=== PATIENT | female | born 1950 | race Caucasian/White ===

== ENCOUNTER 2017-02-17 09:30 | Outpatient (CLI) | payer OTHER ==
--- NOTE | 2017-02-17 11:57 | MMO ---
BILATERAL SCREENING MAMMOGRAM: Date: 02/17/17 INDICATION: Annual exam. COMPARISON: Prior exams dated 01/22/13 and 02/17/16. FINDINGS: Interpretation of this exam was assisted with computer-aided detection. There are scattered fibroglandular elements bilaterally. There are benign-appearing calcifications bilaterally. No suspicious mass, cluster of microcalcifications, or area of architectural distortion is evident. IMPRESSION: BIRADS 2: Benign Finding(s) Recommend routine annual mammographic screening. POS: [facility]
== END 2017-02-17 09:31 | disposition home or self-care (01) ==
LOC: SCSMAMMO 09:30
PROVIDERS: ATTEND Thoracic Surgery (Cardiothoracic Vascular Surgery)
DX: Z12.31 Encounter for screening mammogram for malignant neoplasm of breast (principal)
CPT/HCPCS: 77067; G0202

== ENCOUNTER 2017-10-27 09:01 | Outpatient (CLI) | payer OTHER ==
[~2017-10-27 09:01] MED LIST: ISOVUE-370 76%-LOCM 1 ML ONE
[2017-10-27 09:52] LABS: Estimated GFR-MDRD - POC Greater than 90
== END 2017-10-27 09:02 | disposition home or self-care (01) ==
LOC: BICCT 09:01
PROVIDERS: ATTEND Family Medicine
DX: K57.32 Diverticulitis of large intestine without perforation or abscess without bleeding (principal); R10.814 Left lower quadrant abdominal tenderness
CPT/HCPCS: 74177; 82565

== ENCOUNTER 2018-02-20 08:24 | Outpatient (CLI) | payer OTHER ==
--- NOTE | 2018-02-20 10:15 | MMO ---
BILATERAL SCREENING MAMMOGRAM: Date: 02/20/18 HISTORY: 67-year-old female. Routine screening mammography. COMPARISON: 02/17/17, 02/17/16, 01/26/15, 01/23/14. TECHNIQUE: CC and MLO views of both breasts are submitted for interpretation. This patient's mammogram was reviewed with the assistance of computer-aided detection. FINDINGS: The breasts are composed of scattered fibroglandular tissue. Bilaterally, no suspicious dominant mass , architectural distortion, or suspicious calcifications. Bilateral benign-appearing calcifications a re identified. IMPRESSION: BIRADS 2: Benign Finding(s) RECOMMENDATION: Annual mammogram. POS: [facility]
== END 2018-02-20 08:25 | disposition home or self-care (01) ==
LOC: SCSMAMMO 08:24
PROVIDERS: ATTEND Obstetrics & Gynecology
DX: Z12.31 Encounter for screening mammogram for malignant neoplasm of breast (principal)
CPT/HCPCS: 77067

== ENCOUNTER 2018-08-16 05:23 | Observation (INO) | payer OTHER, MEDICARE ==
[2018-08-16 06:26] LABS: #Basophils 0.2 thou/uL (0.0-0.2); #Eosinphils 0.1 thou/uL (0.0-0.7); #Monocytes 0.5 thou/uL (0.11-0.59); #Neutrophils 4.4 thou/uL (1.40-6.50); %Basophils 2.4 % (0.0-1.0); %Eosinophils 1.9 % (0.0-10.0); %Lymphocytes 27.8 % (21.0-51.0); %Neutrophils 60.8 % (42.0-75.0); Hemoglobin 16.3 g/dL (12.0-16.0); Mean Corpuscular HGB CONC 33.6 g/dL (32.0-36.0); Mean Corpuscular Hemoglobin 28.7 pg (27.0-31.0); Mean Corpuscular Volume 85.4 fL (78.0-98.0); Mean Platelet Volume 7.7 fL (7.4-10.4); Platelet Count 181 thou/uL (130-400); RBC Distribution Width 11.9 % (11.5-14.5); White Blood Cell (WBC) Count 7.3 thou/uL (4.8-10.8)
[2018-08-16 06:36] LABS: Acetaminophen Less than 6.0 mcg/mL (10.0-30.0); Alcohol Less than 10 mg/dL (Less than 10); Salicylate Less than 8.0 mg/dL (15.0-30.0)
[2018-08-16 06:39] LABS: ALT (SGPT) 24 U/L (8-55); AST (SGOT) 21 U/L (5-34); Albumin 4.3 g/dL (3.4-4.8); Alkaline Phosphatase 107 U/L (40-150); Anion Gap 15 mmol/L (10-20); BUN (Urea Nitrogen) 13 mg/dL (9.8-20.1); Bilirubin, Total 0.5 mg/dL (0.2-1.2); CK (CPK) 121 U/L (29-168); Calc. Creatinine Clearance 0 mL/min (70-130); Calcium 10.1 mg/dL (7.8-10.44); Carbon Dioxide 29 mmol/L (23-31); Chloride 99 mmol/L (98-107); Estimated GFR-MDRD 76; Globulin 3.8 g/dL (2.4-3.5); Glucose 114 mg/dL (80-115); Lipase 36 U/L (8-78); Potassium 3.6 mmol/L (3.5-5.1); Protein, Total 8.1 g/dL (6.0-8.3); Sodium 139 mmol/L (136-145)
--- NOTE | 2018-08-16 07:10 | CT ---
CT HEAD NONCONTRAST: Date: 08/16/18 INDICATION: Headache, new onset weakness. FINDINGS: There is no acute intracranial hemorrhage, mass effect, midline shift, or ventriculomegaly. No acute fluid level of the paranasal sinuses is visualized. IMPRESSION: No acute intracranial abnormalities. POS: [facility]
[2018-08-16 07:44] LABS: Bilirubin Negative (Negative); Blood, Urine Negative (Negative); Clarity Slightly Cloudy (Clear); Glucose, Urine (Dipstick) Negative (Negative); Leukocyte Negative (Negative); Nitrite Positive (Negative); Protein, Urine (Dipstick) Negative (Neg-Trace); Specific Gravity, Urine 1.015 (1.005-1.030); Urobilinogen 0.2 mg/dL (0.2-1.0); pH, Urine 7.5 (5.0-9.0)
--- NOTE | 2018-08-16 07:50 | RAD ---
Exam: Chest one view HISTORY:Chest pain. Comparison: 03/16/2009 FINDINGS: Cardiac silhouette: Normal Pulmonary vessels: Normal Costophrenic angles: Clear LUNGS: No masses or consolidation. Pneumothorax: None Osseous abnormalities: None IMPRESSION: No acute cardiopulmonary process.
[2018-08-16 07:56] LABS: Bacteria/HPF 3+ HPF (None Seen); RBC/HPF 0-3 HPF (0-3); Squamous Epithelial None Seen HPF (0-3); WBC/HPF 0-3 HPF (0-3)
[2018-08-16 07:57] LABS: Hyaline Casts/LPF NONE SEEN LPF (0-3 Hyaline)
[2018-08-16 08:00] LABS: Amphetamine Not Detected (NotDetected); Barbiturates Screen Not Detected (NotDetected); Benzodiazepine Screen Not Detected (NotDetected); Cocaine Metabolite Screen Not Detected (NotDetected); Medtox Control Line Valid? VALID (VALID); Methadone Not Detected (NotDetected); Methamphetamine Not Detected (NotDetected); Opiate Screen Not Detected (NotDetected); Oxycodone Screen Not Detected (NotDetected); Phencyclidine (PCP) Not Detected (NotDetected); THC/Cannabinoid Screen Not Detected (NotDetected); Tricyclic Screen Not Detected (NotDetected)
[2018-08-16] MEDS ORDERED: Aspirin Chewable 81 MG TAB ONE (08:23)
--- NOTE | 2018-08-16 08:44 | CT ---
CT ANGIOGRAM CHEST WITH 3D RENDERING CT ANGIOGRAM ABDOMEN WITH 3D RENDERING: HISTORY: Chest pain, weakness, back pain. FINDINGS: Old granuloma calcification changes are noted within the mediastinal and hilar regions. No evidence for aortic aneurysm or dissection. No convincing CT evidence for acute pulmonary embolism. No pleur al effusion or pericardial effusion. No significant pulmonary parenchymal process. In the abdomen, postop cholecystectomy changes are noted. Probable fatty changes of the liver. Panc reas, spleen, and adrenal glands are unremarkable. No renal calculus or acute obstruction. No dominik wel obstruction, abscess, adenopathy, or abnormal fluid collection. Minimal colonic diverticulosis w ithout acute diverticulitis in the sigmoid colon. No evidence for abdominal aortic aneurysm. There are scattered vascular calcific plaques, evidence for atherosclerotic disease. IMPRESSION: Evidence for aortic atherosclerotic disease. No evidence for aortic aneurysm or dissection. No conv incing CT evidence for acute pulmonary embolism. Probable fatty changes in the liver. Minimal sigmo id colon diverticulosis without acute diverticulitis. Other findings as above. POS: [facility]
[2018-08-16] MEDS ORDERED: Acetaminophen 325 MG TAB ONE (14:38)
[2018-08-16 16:07] VITALS: BMI 28.3
[2018-08-16] MEDS ORDERED: Acetaminophen 325 MG TAB PO PRN (16:35)
[2018-08-16] MEDS ORDERED: Enoxaparin Sodium 30 MG/0.3 ML SYRINGE SC SCH (16:45)
[2018-08-16 16:52] LABS: Troponin I Less than 0.010 ng/mL (< 0.028)
--- NOTE | 2018-08-16 17:04 | PDOC.FPRHP ---
- Allergies/Adverse Reactions Allergies Allergy/AdvReac Type Severity Reaction Status Date / Time No Known Allergies Allergy Verified 08/16/18 16:38 - Home Medications Medication Instructions Recorded Confirmed Type Atenolol 25 mg PO DAILY 08/16/18 08/16/18 History Multivit, Therapeutic [Theragran] 1 tab PO DAILY 08/16/18 08/16/18 History Winston-3 Fatty Acids [Winston-3] 1,000 mg PO HS 08/16/18 08/16/18 History Pantoprazole [Protonix] 40 mg PO DAILY 08/16/18 08/16/18 History clonazePAM [Clonazepam] 0.5 mg PO HS 08/16/18 08/16/18 History Aspirin [Ecotrin Low Strength] 81 mg PO DAILY tab 08/17/18 Rx - History PMHx: PSHx: FHx: Social: - Vital signs BP: [] HR: [] RR: [] Tmax: [] Pox: []% on [] Wt: [] FMR H&P: Results - Labs Result Diagrams: 08/16/18 06:15 08/16/18 06:15 Lab results: WBC 7.3 thou/uL (4.8-10.8) 08/16/18 06:15 Hgb 16.3 g/dL (12.0-16.0) H 08/16/18 06:15 Hct 48.7 % (36.0-47.0) H 08/16/18 06:15 MCV 85.4 fL (78.0-98.0) 08/16/18 06:15 Plt Count 181 thou/uL (130-400) 08/16/18 06:15 Neutrophils % 60.8 % (42.0-75.0) 08/16/18 06:15 Sodium 139 mmol/L (136-145) 08/16/18 06:15 Potassium 3.6 mmol/L (3.5-5.1) 08/16/18 06:15 Chloride 99 mmol/L (98-107) 08/16/18 06:15 Carbon Dioxide 29 mmol/L (23-31) 08/16/18 06:15 BUN 13 mg/dL (9.8-20.1) 08/16/18 06:15 Creatinine 0.76 mg/dL (0.6-1.1) 08/16/18 06:15 Glucose 114 mg/dL (80-115) 08/16/18 06:15 Calcium 10.1 mg/dL (7.8-10.44) 08/16/18 06:15 Total Bilirubin 0.5 mg/dL (0.2-1.2) 08/16/18 06:15 AST 21 U/L (5-34) 08/16/18 06:15 ALT 24 U/L (8-55) 08/16/18 06:15 Alkaline Phosphatase 107 U/L (40-150) 08/16/18 06:15 Creatine Kinase 121 U/L (29-168) 08/16/18 06:15 Serum Total Protein 8.1 g/dL (6.0-8.3) 08/16/18 06:15 Albumin 4.3 g/dL (3.4-4.8) 08/16/18 06:15 Lipase 36 U/L (8-78) 08/16/18 06:15 Urine Ketones Negative mg/dL (Negative) 08/16/18 07:39 Urine Blood Negative (Negative) 08/16/18 07:39 Urine Nitrite Positive (Negative) H 08/16/18 07:39 Ur Leukocyte Esterase Negative (Negative) 08/16/18 07:39 Urine RBC 0-3 HPF (0-3) 08/16/18 07:39 Urine WBC 0-3 HPF (0-3) 08/16/18 07:39 Ur Squamous Epith Cells None Seen HPF (0-3) 08/16/18 07:39 Urine Bacteria 3+ HPF (None Seen) H 08/16/18 07:39 FMR H&P: Upper Level - Plan Date/Time: 08/16/18 [id number] PCP: Rayo HPI: This is a 67 yo F admitted from the ED for chest pain r/o and tia r/o. Patient presented to the ED after waking up at 4am and feeling dizzy. She states that when she was walking to the restroom she felt like she might fall. She states she was able to use the restroom, shower, and brush her teeth then went back to bed. Denies focal weakness or falling. She says her left leg feels maybe a little different than her right. She also has a mild headache. She is also complaiing of central chest pain which sometimes radiates to the back. It comes and goes, usually set off by stress at work. Lasts less than 5 sec and described as pressure. Not exacerbated by walking. She has had this type of pain in the past denies any cardiac history. On the stroke floor she is able to walk the entire length of the hallway without difficulty. ED course: Ct head, CT dissection negative EKG WNL Trop x1 at 0600 negative, no repeat trop PMH: HTN, GERD, PE 2006 PSH: nick Meds: clonazepam, atenolol, protonix Allergies: NKDA Soc Hx: no smoking, alcohol, or drugs Fm Hx: mom strok in 60s, dad bypass 60s REVIEW OF SYSTEMS: Gen: no fever, chills, or sweats Neuro: see hpi Eyes: no visual changes ENT: no hearing changes, no sore throat, no runny nose Resp: +cough, non-productive, no SOB, no wheeze Card: see hpi GI: no N/V/D, no abdominal pain : no dysuria, no hematuria MSK: no myalgias, no joint pain/stiffness Heme: no blood thinners, was on blood thinners for 7 days after PE Skin: no rash, no erythema Vitals: T: 98.0 R: 18 BP: 144/94 P:80 Sat: 95% on RA Wt: 72kg PHYSICAL EXAMINATION: General: NAD, alert and oriented x3 HEENT: PERRLA, EOMI, normal sclera, oropharynx without erythema or exudate Neck: Supple. Full ROM. Heart/Cardiovascular System: RRR, Cap refill < 3 seconds, no rub, no murmur Lungs/Respiratory System: clear to auscultation bilaterally. No increased work of breathing. Room air. Abdomen/Gastro-Intestinal System: no abdominal tenderness, normal bowel sounds, no masses, no organomegaly Extremities: Warm extremities. No cyanosis or edema. Neuro: No gross deficits appreciated. CN 2-12 grossly intact. No drift on upper or low extremities, strength appropriate and equal bilaterally, heel-jefferson and finger to nose normal, walks the entire length of stroke floor without difficulty, HINTS negative, NIHSS: 0 Psychiatry: Awake, Alert and cooperative with exam Skin: No lesions, rashes, or ulcers Musculoskeletal: Full ROM A/P: # TIA r/o suspect anxiety - carotid Doppler, MRI, FLP - Neuro, PT, OT consulted - NIHSS qshift # CP r/o suspect costochondritis - EKG WNL, initial trop neg - repeat trop # HTN - home atenolol # GERD - home protonix Fluids: TKO Code status: Full PPx: SCD, lovenox Dispo: anticipate D/c tomorrow AM Addendum - Attending - Attending Attestation Date/Time: 08/17/18 3049 I personally evaluated the patient and discussed the management with Dr. Mir. I agree with the History, Examination, Assessment and Plan documented above with any addition or exceptions noted below.
--- NOTE | 2018-08-16 17:58 | ULT ---
BILATERAL CAROTID DUPLEX ULTRASOUND: HISTORY: TIA TECHNIQUE: Grayscale, color-flow and spectral Doppler ultrasound imaging of the extracranial carotid artery syst ems was performed bilaterally. FINDINGS: There is mild calcified atherosclerotic plaques in the region of the carotid bulbs bilaterally. There is moderate (50-69%) stenosis involving the right internal carotid artery primarily based on mi ld elevation of the right ICA/CCA ratio which is 2.02. The peak systolic velocity in the right ICA is 112.2 cm/s. There is no hemodynamically significant stenosis in the left internal carotid artery according to the peak systolic velocities and the ICA/CCA ratio. The peak systolic velocity in the left ICA is 48.2 cm/s and the left ICA/CCA ratio is 0.59. Vertebral arteries: Antegrade flow is demonstrated in the vertebral arteries bilaterally. IMPRESSION: 1. Moderate (50-69%) stenosis involving the right internal carotid artery primarily based on an eleva laura right ICA/CCA ratio. The peak systolic velocities in the right ICA are within normal limits. 2. No hemodynamically significant stenosis in the left internal carotid artery.
--- NOTE | 2018-08-16 17:59 | MRI ---
Noncontrast enhanced MRI images brain. HISTORY: TIAs. Multiplanar multisequence noncontrast enhanced MRI images brain demonstrate the brain to be unremarka ble. No evidence of intracranial masses, hemorrhages strokes or contusion seen. Ventricles are of normal size. No other significant intracranial abnormality seen. IMPRESSION: Unremarkable MRI brain.
[2018-08-16] MEDS ORDERED: clonazePAM 0.5 MG TAB PO SCH (21:00)
--- NOTE | 2018-08-17 07:32 | PDOC.FM ---
- Subjective Subjective: Pt feeling better. Has not had any episodes of balance dysfunction. No episodes of chest discomfort since admission - Objective Vital Signs & Weight: Vital Signs (12 hours) Temp Pulse Resp BP Pulse Ox 08/17/18 04:00 97.3 F L 72 16 127/81 96 08/17/18 00:00 97.3 F L 67 16 125/81 94 L 08/16/18 19:54 97.6 F 76 16 146/91 H 98 Weight Weight 72.575 kg I&O: 08/16/18 08/17/18 08/18/18 06:59 06:59 06:59 Intake Total 240 Balance 240 Result Diagrams: 08/16/18 06:15 08/16/18 06:15 Phys Exam - Physical Examination Constitutional: NAD HEENT: moist MMs, sclera anicteric Neck: supple Respiratory: no wheezing, clear to auscultation bilateral Cardiovascular: RRR, no significant murmur Gastrointestinal: soft, non-tender Musculoskeletal: pulses present Neurological: non-focal, normal sensation, moves all 4 limbs Lymphatic: no nodes Psychiatric: normal affect, A&O x 3 Skin: no rash, normal turgor Dx/Plan (1) Chest pain Code(s): R07.9 - CHEST PAIN, UNSPECIFIED Status: Acute (2) Dizzy Code(s): R42 - DIZZINESS AND GIDDINESS Status: Acute (3) Anxiety Code(s): F41.9 - ANXIETY DISORDER, UNSPECIFIED Status: Acute - Plan Plan: TIA r/o CVA, suspect anxiety A- likely 2/2 to anxiety vs. volemic status. carotid Doppler, MRI, FLP all normal P- likely DC today - NIHSS qshift CP r/o suspect costochondritis A- EKG WNL, trop negative x3. Pain is quite atypical. P- likely DC today -plan for outpt DC Carotid stenosis A- R ICA stenosis 50-69%, no significant stenosis on L. It is unlikely that pts balance symptoms were 2/2 to stenosis. P- Will discuss CV surg consult vs. outpt f/u HTN - home atenolol GERD - home protonix Dispo: anticipate D/C today Addendum - Attending - Attending Attestation Date/Time: 08/17/18 2847 I personally evaluated the patient and discussed the management with Dr. Kauffman I agree with the History, Examination, Assessment and Plan documented above with any addition or exceptions noted below. EKG, lipid panel, CT head and MRI brain all negative, CVA and TIA ruled out. Troponins negative x3 with insignificant EKG. ACS less likely with normal CE. Rx outpatient f/u for stress test and to f/u with PCP
[2018-08-17 07:37] LABS: Troponin I Less than 0.010 ng/mL (< 0.028)
[2018-08-17] MEDS ORDERED: Prevnar 13-Val Conj/PF 0.5 ML SYRINGE IM ONE (09:00)
[2018-08-17] MEDS ORDERED: Aspirin 81 mg Enteric Coated Tablet PO SCH (09:00)
[2018-08-17] MEDS ORDERED: Atenolol 25 MG TAB PO SCH (09:00)
[2018-08-17 11:22] VITALS: TEMP 98
[2018-08-17 12:19] VITALS: BP 122/86
--- NOTE | 2018-08-18 00:45 | DIS ---
DATE OF ADMISSION: 08/16/2018 DATE OF DISCHARGE: 08/17/2018 RESIDENT: Corbin Kauffman MD ADMITTING ATTENDING: Oc Rodríguez MD DISCHARGE ATTENDING: Corbin Joyce MD. CONSULTS: None. PROCEDURES: 1. On 08/16/2018, brain CT, impression, no acute intracranial abnormalities. 2. On 08/16/2018, chest x-ray, impression, no acute cardiopulmonary process. 3. On 08/16/2018, CT dissection, impression, evidence for aortic atherosclerotic disease. No evidence for aortic aneurysm or dissection. No convincing CT evidence or acute pulmonary embolism. Probable fatty changes in the liver. Minimal sigmoid colon diverticulosis without acute diverticulitis. Other findings as above. 4. On 08/16/2018, unremarkable MRI brain. 5. On 08/16/2018, carotid Doppler, impression, moderate 50% to 69% stenosis involving the right internal carotid artery primarily based on elevated right ICA ratio. The peak systolic velocities in the right ICA are within normal limits. No hemodynamically significant stenosis of the left internal carotid artery. DISCHARGE MEDICATIONS: 1. Multivitamin one tablet p.o. daily. 2. Pantoprazole 40 mg p.o. daily. 3. Clonazepam 0.5 mg p.o. at bedtime resumed at home. 4. Sparks-3 fatty acids 1000 mg p.o. at bedtime. 5. Atenolol 25 mg p.o. daily. 6. Aspirin 81 mg p.o. daily. DISCONTINUED MEDICATIONS: None. PRIMARY DIAGNOSIS: Atypical chest pain likely secondary to musculoskeletal cause. SECONDARY DIAGNOSES: 1. Rule out transient ischemic attack/cerebrovascular accident. 2. Anxiety. 3. Carotid stenosis. 4. Hypertension. 5. Gastroesophageal reflux disease. HISTORY OF PRESENT ILLNESS/HOSPITAL COURSE: This is a 67-year-old female, who presented to the hospital after an episode of loss of balance. The patient stated that she was not necessarily dizzy with the room spinning, but that she just felt a little off balance in middle of the night. The patient was also complaining of intermittent sharp chest pain lasting less than 5 seconds, exacerbated by anxiety. This patient was admitted directly from the outside ER for chest pain rule out and rule out TIA. The patient had negative troponins x3, negative chest x-ray and EKG. Regarding chest pain with the patient's negative studies and not impressive character of pain, the patient was stable for discharge with recommendations for outpatient stress. Regarding the patient's loss of balance and dizziness, CT brain and MRI were done which were both negative for CVA and so, the patient was discharged with plans for outpatient followup with PCP. Of note, on carotid artery Doppler, it was found the right internal carotid artery had moderate stenosis 50% to 69% and so, the patient was informed of this finding with recommendations to follow up outpatient for possible referral to CV Surgery and/or more imaging. DISPOSITION: Stable. DISCHARGE INSTRUCTIONS: 1. Location: Home. 2. Diet: Healthy heart diet. 3. Followup: Follow up with Dr. Cade in 10 days. 4. Activity: As tolerated. Job ID: [id number]
== END 2018-08-17 14:30 | disposition home or self-care (01) ==
LOC: SCSER 05:23 → SCSEROBS 08:20 → 2SE 15:40
PROVIDERS: ADMIT Family Medicine; ATTEND Family Medicine
DX: R07.89 Other chest pain (principal); R42 Dizziness and giddiness; R51 Headache; F41.9 Anxiety disorder, unspecified; I65.21 Occlusion and stenosis of right carotid artery; I10 Essential (primary) hypertension; K21.9 Gastro-esophageal reflux disease without esophagitis; K57.30 Diverticulosis of large intestine without perforation or abscess without bleeding; Z86.711 Personal history of pulmonary embolism; Z79.899 Other long term (current) drug therapy
CPT/HCPCS: 36415; 70450; 70551; 71045; 71275; 80053; 80061; 80306; 80307; 81003; 81015; 82550; 83690; 84484; 85025; 85379; 90471; 90670; 93005; 93880; 96372; G0009; G0378; J1650

== ENCOUNTER 2018-08-31 10:14 | Outpatient (CLI) | payer OTHER ==
--- NOTE | 2018-08-31 11:24 | CT ---
CTA NECK WITH CONTRAST: HISTORY: Carotid stenosis. Dizziness. TECHNIQUE: Contrast enhanced CTA of the carotid arteries performed with 2D and 3D reconstructed images performed . FINDINGS: CTA images demonstrate the apices of the lungs to be unremarkable. The thyroid gland is mildly heterogeneous. No other evidence of significant soft tissue neck mass is seen. The aortic arch is unremarkable. The right brachiocephalic artery is patent. The right carotid abdias ry is patent. There is an area of dense calcified and noncalcified plaque in the origin of the right ICA, resulting in approximately 80% right ICA stenosis. More distally, the right ICA is patent. The left carotid artery is unremarkable. The left internal carotid artery is patent. The right and left vertebral arteries are patent. The basilar artery is also patent. IMPRESSION: Approximately 80% origin right internal carotid artery stenosis. POS: [facility]
== END 2018-08-31 10:15 | disposition home or self-care (01) ==
LOC: BICCT 10:14
PROVIDERS: ATTEND Family Medicine
DX: I65.21 Occlusion and stenosis of right carotid artery (principal)
CPT/HCPCS: 70498; 82565

== ENCOUNTER 2018-09-20 09:47 | Outpatient (CLI) | payer OTHER ==
[2018-09-20 17:28] LABS: Hemoglobin 14.6 g/dL (12.0-16.0); Mean Corpuscular HGB CONC 33.5 g/dL (32.0-36.0); Mean Corpuscular Hemoglobin 29.1 pg (27.0-31.0); Mean Corpuscular Volume 86.9 fL (78.0-98.0); Platelet Count 346 thou/uL (130-400); RBC Distribution Width 11.8 % (11.5-14.5); Red Blood Cell (RBC) Count 5.02 mill/uL (4.20-5.40); White Blood Cell (WBC) Count 8.8 thou/uL (4.8-10.8)
[2018-09-20 17:53] LABS: Anion Gap 15 mmol/L (10-20); BUN (Urea Nitrogen) 13 mg/dL (9.8-20.1); Calc. Creatinine Clearance 0 mL/min (70-130); Carbon Dioxide 27 mmol/L (23-31); Chloride 98 mmol/L (98-107); Estimated GFR-MDRD 79; Glucose 87 mg/dL (80-115); Potassium 3.8 mmol/L (3.5-5.1); Sodium 136 mmol/L (136-145)
== END 2018-09-20 09:48 | disposition home or self-care (01) ==
LOC: LABBT 09:47
PROVIDERS: ATTEND Thoracic Surgery (Cardiothoracic Vascular Surgery)
DX: Z01.812 Encounter for preprocedural laboratory examination (principal); I65.29 Occlusion and stenosis of unspecified carotid artery
CPT/HCPCS: 80048; 85027

== ENCOUNTER 2018-09-20 16:15 | Inpatient (IN) | payer OTHER, MEDICARE ==
[2018-09-21] MEDS ORDERED: Heparin 5,000 UNITS/ML VIAL ONE (06:35)
[2018-09-21] MEDS ORDERED: Protamine Sulfate 50 MG/5 ML VIAL ONE (06:35)
[2018-09-21] MEDS ORDERED: Fentanyl 250 MCG/5 ML VIAL ONE (06:40)
[2018-09-21] MEDS ORDERED: Bupivacaine HCl 0.5%/Epinephrine 1:200,000/PF 30 ml Vial ONE (07:45)
[2018-09-21] MEDS ORDERED: Promethazine HCl 25 MG/ML VIAL IM PRN ×2 (08:22→13:34)
[2018-09-21] MEDS ORDERED: Promethazine HCl 25 MG/ML VIAL SLOW IVP PRN (08:22)
[2018-09-21] MEDS ORDERED: Ondansetron HCl/PF 4 MG/2 ML Vial IVP PRN (08:22)
--- NOTE | 2018-09-21 12:28 | OP ---
DATE OF PROCEDURE: 09/21/2018 PREOPERATIVE DIAGNOSIS: Severe right carotid stenosis. PROCEDURE PERFORMED: Right carotid endarterectomy with bovine patch. ANESTHESIA: General. ESTIMATED BLOOD LOSS: Minimal. DESCRIPTION OF PROCEDURE: After adequate anesthesia had been obtained, roll was placed. Head turned to the left. Ultrasound was used to isolate the bulb. Incision was then made after prepping and draping, carried down through the platysma, isolating the common internal and external carotid artery. Hypoglossal nerve was identified and avoided. Facial vein was partly ligated and divided involving some of its branches to allow access to the internal carotid artery. After 7500 units of heparin with a good ACT level, the arteriotomy was performed after controlling the vessels and arteriotomy completed with the Melgoza and a 12-Turkish shot was placed. Following this, endarterectomy was performed with nice tapering distally. The area was irrigated. No loose debris was identified. Bovine patch was used to close the arteriotomy with a running 6-0 Prolene suture. Prior to completing the suture line, the vessels were forward flushed and backflushed, and flow was then restored up the external and then internal carotid artery. Following this, protamine was given to partially reverse the heparin. After obtaining good hemostasis, the wound was irrigated and closed in layers. Job ID: [id number]
[2018-09-21] MEDS ORDERED: Lactated Ringer's 1,000 ML IV SCH (13:34)
[2018-09-21] MEDS ORDERED: Ondansetron PF 4 MG/2 ML Vial IVP PRN (13:34)
[2018-09-21] MEDS ORDERED: Phenylephrine 10 MG/NS 250 ML 250 ML IVPB PRN (13:34)
[2018-09-21] MEDS ORDERED: Fentanyl 100 MCG/2 ML VIAL SLOW IVP PRN ×2 (13:34)
[2018-09-21] MEDS ORDERED: Acetaminophen 325 MG TAB PO PRN (13:34)
[2018-09-21] MEDS ORDERED: HYDROcodone/Acetaminophen 5/325 mg Tablet PO PRN (13:34)
[2018-09-21] MEDS ORDERED: Nitroglycerin 50 MG/250 ML BOT 250 ML IVPB PRN (13:34)
[2018-09-21] MEDS ORDERED: Aspirin Chewable 81 MG TAB PO SCH (13:45)
[2018-09-21] MEDS ORDERED: Atenolol 25 MG TAB PO SCH (13:45)
[2018-09-21] MEDS: CEFAZOLIN 2 GM in Premix Bag 1 BAG IVPB SCH ×2 (14:39→21:18)
[2018-09-21] MEDS ORDERED: ePHEDrine 50 MG/ML VIAL ONE (14:47)
[2018-09-21] MEDS ORDERED: Lidocaine 1% PF 5 ML VIAL ONE (14:47)
[2018-09-21] MEDS ORDERED: Ketorolac Tromethamine 30 MG/ML VIAL ONE (14:47)
[2018-09-21] MEDS ORDERED: Dexamethasone 20 MG/5 ML VIAL ONE (14:47)
[2018-09-21] MEDS ORDERED: Heparin 10,000 UNITS/ 10 ML VIAL ONE (14:47)
[2018-09-21] MEDS ORDERED: Rocuronium Bromide 10 MG/ML (10ML VIAL) ONE (14:47)
[2018-09-21] MEDS ORDERED: Ondansetron PF 4 MG/2 ML Vial ONE (14:47)
[2018-09-21] MEDS ORDERED: PROPOFOL 200 MG/20 ML VIAL ONE (14:47)
[2018-09-21 18:23] VITALS: BMI 26.4
[2018-09-21 18:24] VITALS: BP 146/79
[2018-09-21] MEDS ORDERED: clonazePAM 0.5 MG TAB PO SCH (21:00)
[2018-09-21] MEDS: HYDROcodone/Acetaminophen 5/325 mg Tablet PO PRN (23:14)
[2018-09-22] MEDS: CEFAZOLIN 2 GM in Premix Bag 1 BAG IVPB SCH (05:45)
[2018-09-22 08:56] VITALS: TEMP 98.1
[2018-09-22] MEDS ORDERED: Atenolol 25 MG TAB PO SCH (09:00)
[2018-09-22] MEDS ORDERED: Aspirin Chewable 81 MG TAB PO SCH (09:00)
[2018-09-22] MEDS: HYDROcodone/Acetaminophen 5/325 mg Tablet PO PRN (10:52)
--- NOTE | 2018-09-23 03:07 | DIS ---
DATE OF ADMISSION: 09/21/2018 DATE OF DISCHARGE: 09/22/2018 PRINCIPAL DIAGNOSIS: Right carotid stenosis. PROCEDURES PERFORMED: Right carotid endarterectomy with bovine pericardial patch angioplasty. HISTORY OF PRESENT ILLNESS AND HOSPITAL COURSE: The patient is a 67-year-old woman with hypertension, who recently was found to have carotid stenosis suggested on an ultrasound done as part of an evaluation of dizziness, left neck and arm pain, and left arm paresthesias. Although, the ultrasound suggested her right carotid was in the 50% to 69% range, CTA suggested it was 80%. No convincing TIA symptoms were listed on history, but she was deemed an appropriate candidate for endarterectomy in the asymptomatic setting. She underwent endarterectomy and her only real issues in the perioperative period overnight were low blood pressure requiring the use of phenylephrine. Today, on postoperative day 1, she is off those drips, but still has systolic blood pressures in the 90 to 120 range with heart rates in the 60 to 70 range. Her atenolol is going to be held for the time being. She has some inward puckering of the lower lip on the right side consistent with a marginal mandibular nerve palsy, but her smile is symmetric and she moves all 4 extremities equally to command. Her voice is at baseline. Other than having to be careful about how she chews her food, she is able to the eat and breathe without difficulty. Her wound has minimal swelling. Assuming that she tolerates being up and out of the bed well, she can be discharged home to resume her home medicationswith the exception of her atenolol. She is on a baby aspirin a day normally and I have written a prescription for tramadol as needed for pain. Job ID: [id number]
== END 2018-09-22 12:15 | disposition home or self-care (01) | DRG 39 ==
LOC: SURG A 09-21 05:37 → CCU 09-21 10:42
PROVIDERS: ADMIT Thoracic Surgery (Cardiothoracic Vascular Surgery); ATTEND Thoracic Surgery (Cardiothoracic Vascular Surgery)
PROC: 03CK0ZZ Extirpation of Matter from Right Internal Carotid Artery, Open Approach (ICD-10-PCS; principal; 2018-09-21)
PROC: 03UK0KZ Supplement Right Internal Carotid Artery with Nonautologous Tissue Substitute, Open Approach (ICD-10-PCS; 2018-09-21)
DX: I65.21 Occlusion and stenosis of right carotid artery (principal)
CPT/HCPCS: J0670; J0690; J1642; J1644; J2370; J2720; J3010; J7050

== ENCOUNTER 2019-02-12 13:34 | Outpatient (CLI) | payer OTHER ==
--- NOTE | 2019-02-12 15:07 | MRI ---
MR the lumbar spine without contrast INDICATION: Lumbar stenosis with neurogenic claudication COMPARISON: None. TECHNIQUE: Multiplanar multisequence MR images were obtained of lumbar spine without IV contrast. FINDINGS: Bone marrow: Bone marrow signal intensity appears within normal limits. Distal spinal cord and conus: Normal. The conus seen to terminate at T12. Visualized retroperitoneum and paraspinal soft tissues: Normal. Vertebral levels: L5-S1: No appreciable central canal or neuroforaminal narrowing.. L4-5: Broad-based bulge with facet hypertrophy inducing mild central canal narrowing with mild bilate ral neural foraminal narrowing. L3-4: Mild broad-based bulge with facet hypertrophy inducing mild central canal narrowing mild bilate ral neural foraminal narrowing. L2-3: Mild broad-based bulge with facet hypertrophy inducing mild central canal narrowing but no appr eciable left-sided neural foraminal narrowing. The broad-based bulge is slightly asymmetric to the right and does induce mild right neural foraminal narrowing. L1-L2: Mild broad-based bulge T12-L1: No appreciable central canal or neuroforaminal narrowing. IMPRESSION: 1. Mild spondylosis of the lumbar spine with multilevel mild central canal narrowing and mild bilater al neural foraminal narrowing at L4-5 and L3-4. There is mild central canal narrowing with mild right neural foraminal narrowing at L2-3.
--- NOTE | 2019-02-12 15:39 | MRI ---
CERVICAL SPINE MRI WITHOUT CONTRAST: 02/12/19 COMPARISON: None. HISTORY: Cervical stenosis, neck pain. TECHNIQUE: Multiplanar and multisequence MR imaging of the cervical spine obtained without contrast. FINDINGS: The STIR sagittal imaging demonstrates no focal area of osseous marrow edema. Detailed assessment of the cervical spine is somewhat limited on the basis of motion artifact. C2-3: Mild bilateral facet hypertrophy. Intervertebral disc height and signal intensity grossly unremarkable with no significant central omar l or neural foraminal stenosis. C3-4: There is a small central disc protrusion partially effacing the ventral thecal sac and causing a mild degree of central canal stenosis. There is bilateral facet and uncovertebral osteophyte format ion causing mild bilateral neural foraminal stenosis. C4-5: There is disc space narrowing and disc desiccation with disc bulge effacing the ventral thecal sac with moderate/severe central canal stenosis and probable mild cord flattening. Bilateral facet an d uncovertebral osteophyte formation, right greater than left, with mild left and moderate/severe rig ht neural foraminal stenosis. C5-6: There is disc space narrowing and disc desiccation with disc bulge effacing the ventral thecal sac and abutting the ventral aspect of the cord with moderate/severe central canal stenosis. Facet an d uncovertebral osteophyte formation noted bilaterally, right greater than left, with moderate left a nd severe right neural foraminal stenosis. C6-7: There is disc space narrowing and disc desiccation with mild disc bulge. There is bilateral fac et hypertrophy and hypertrophy of the uncovertebral joints, left greater than right. Mild right and s evere left neural foraminal stenosis. C7-T1: Mild facet hypertrophy on the left. No significant central canal or neural foraminal stenosis. There is no focal area of abnormal signal intensity identified within the cervical cord. IMPRESSION: Multilevel cervical spine degenerative change as detailed above, most severe at C4-5 and C5-6. POS: [facility]
== END 2019-02-12 13:35 | disposition home or self-care (01) ==
LOC: BICMRI 13:34
PROVIDERS: ATTEND Anesthesiology Pain Medicine
DX: M48.02 Spinal stenosis, cervical region (principal); M48.062 Spinal stenosis, lumbar region with neurogenic claudication; M47.812 Spondylosis without myelopathy or radiculopathy, cervical region; M47.816 Spondylosis without myelopathy or radiculopathy, lumbar region
CPT/HCPCS: 72141; 72148

== ENCOUNTER 2019-02-25 08:04 | Outpatient (CLI) | payer OTHER ==
--- NOTE | 2019-02-25 09:16 | CT ---
CT Abdomen Pelvis W Con HISTORY: Diverticulitis FINDINGS: The lung bases are unremarkable. There are calcified granules in the spleen. There is fatty infiltration of the liver without focal mass or abnormal biliary duct dilatation. The patient is post cholecystectomy. The pancreas, adrenal glands and kidneys appear normal. No free air, free fluid or lymphadenopathy seen in the abdomen or pelvis. The small bowel loops are n ot abnormally dilated. There is colonic diverticulosis without evidence of diverticulitis. No abnormally loculated fluid collection is noted to suggest abscess formation. There are vascular calcifications without evidence of aneurysmal dilatation of the abdominal aorta. D egenerative changes are seen in the spine. The uterus is present. A normal-appearing appendix is noted. IMPRESSION: 1. Fatty liver 2. Splenic granulomas 3. Colonic diverticulosis without evidence of diverticulitis or abscess formation.
[2019-02-25] MEDS ORDERED: Iopamidol 370 76% 100 ML VIAL ONE (11:33)
== END 2019-02-25 08:05 | disposition home or self-care (01) ==
LOC: CT 08:04
PROVIDERS: ATTEND Family Medicine
DX: K57.20 Diverticulitis of large intestine with perforation and abscess without bleeding (principal); K76.0 Fatty (change of) liver, not elsewhere classified
CPT/HCPCS: 74177; 82565; Q9967

== ENCOUNTER 2021-02-18 09:48 | Outpatient (CLI) | payer MEDICARE | END 2021-02-18 09:49 | disposition home or self-care (01) | LOC: SCSMRI 09:48 | PROVIDERS: ATTEND Anesthesiology Pain Medicine | DX: G44.86 Cervicogenic headache (principal); M47.812 Spondylosis without myelopathy or radiculopathy, cervical region; M50.321 Other cervical disc degeneration at C4-C5 level | CPT/HCPCS: 72052; 72141 ==

== ENCOUNTER 2021-05-03 10:58 | Outpatient (CLI) | payer MEDICARE | END 2021-05-03 10:59 | disposition home or self-care (01) | LOC: BICRAD 10:58 | PROVIDERS: ATTEND Nurse Practitioner Family | DX: M25.511 Pain in right shoulder (principal) ==

== ENCOUNTER 2023-12-27 09:20 | Outpatient (CLI) | payer MEDICARE | END 2023-12-27 09:21 | disposition home or self-care (01) | LOC: SCSMRI 09:20 | PROVIDERS: ATTEND Psychiatry & Neurology Neurology | DX: G50.0 Trigeminal neuralgia (principal); R90.89 Other abnormal findings on diagnostic imaging of central nervous system | CPT/HCPCS: 36415; 70553; 76376; 82565 ==